=== PATIENT | female | born 1985 | race Hispanic/Latino ===

== ENCOUNTER 2021-08-17 12:32 | Emergency (ER) | payer OTHER ==
[~2021-08-17 12:32] MED LIST: Iopamidol 370 76% 100 ML VIAL ONE
[2021-08-17 13:00] LABS: #Lymphocytes 1.2 thou/uL (1.20-3.40); #Monocytes 0.3 thou/uL (0.11-0.59); #Neutrophils 8.7 thou/uL (1.40-6.50); %Basophils 0.2 % (0.0-1.0); %Lymphocytes 11.5 % (21.0-51.0); %Neutrophils 85.3 % (42.0-75.0); Hemoglobin 13.9 g/dL (12.0-16.0); Mean Corpuscular HGB CONC 34.4 g/dL (32.0-36.0); Mean Corpuscular Hemoglobin 30.3 pg (27.0-31.0); Mean Corpuscular Volume 88.1 fL (78.0-98.0); Mean Platelet Volume 6.3 fL (7.4-10.4); Platelet Count 410 thou/uL (130-400); RBC Distribution Width 11.5 % (11.5-14.5); Red Blood Cell (RBC) Count 4.59 mill/uL (4.20-5.40); White Blood Cell (WBC) Count 10.1 thou/uL (4.8-10.8)
[2021-08-17 13:16] LABS: BHCG - Serum Negative (NEGATIVE); Pregs Control Background? CLEAR/WHITE (CLR/WHITE); Pregs Control Bar Appear? YES (CONTROL BAR)
[2021-08-17 13:18] LABS: ALT (SGPT) 40 U/L (8-55); AST (SGOT) 46 U/L (5-34); Albumin 3.7 g/dL (3.5-5.0); Alkaline Phosphatase 47 U/L (40-110); Anion Gap 16 mmol/L (10-20); BUN (Urea Nitrogen) 14 mg/dL (7.0-18.7); Bilirubin, Total 0.7 mg/dL (0.2-1.2); Calc. Creatinine Clearance 0 mL/min (70-130); Calcium 8.8 mg/dL (7.8-10.44); Carbon Dioxide 26 mmol/L (22-29); Chloride 96 mmol/L (98-107); Globulin 3.6 g/dL (2.4-3.5); Glucose 118 mg/dL (70-105); Potassium 3.1 mmol/L (3.5-5.1); Protein, Total 7.3 g/dL (6.0-8.3); Sodium 135 mmol/L (136-145)
[2021-08-17] MEDS ORDERED: Albuterol 200 PUFF (6.7GM INHALER) INH SCH (13:30)
[2021-08-17] MEDS ORDERED: Sodium Chloride 0.9% 1,000 ML IV SCH (13:30)
[2021-08-17] MEDS ORDERED: Magnesium 2 GM/50 ML 2 GM in Premix Bag 1 BAG IVPB SCH (13:45)
[2021-08-17] MEDS ORDERED: Aspirin 325 MG TAB PO SCH (13:45)
[2021-08-17] MEDS ORDERED: Magnesium 2 GM/50 ML BAG (IN WATER) ONE (13:51)
[2021-08-17] MEDS ORDERED: Azithromycin 500 MG VIAL ONE (13:57)
[2021-08-17] MEDS ORDERED: cefTRIAXone\\ROCEPHIN 1 GM VIAL ONE ×2 (13:57→13:59)
[2021-08-17] MEDS ORDERED: Aspirin Chewable 81 MG TAB ONE (14:44)
[2021-08-17] MEDS ORDERED: Dexamethasone 10 MG/ML VIAL ONE (15:31)
[2021-08-17] MEDS ORDERED: Potassium Chloride 20 MEQ TAB ONE (15:31)
[2021-08-17] MEDS ORDERED: Acetaminophen 325 MG Suppository ONE (16:46)
[2021-08-17] MEDS ORDERED: Acetaminophen 325 MG TAB ONE ×2 (16:46)
== END 2021-08-17 18:17 | disposition short-term general hospital (02) ==
LOC: BURERS 12:32
DX: U07.1 COVID-19 (principal); J12.82 Pneumonia due to coronavirus disease 2019; N17.9 Acute kidney failure, unspecified; E87.6 Hypokalemia
CPT/HCPCS: 71045; 71275; 80053; 83605; 84484; 84703; 85025; 85379; 87040; 93005; 96365; 96366; 96367; 96368; 96375; J0456; J0696; J1100; J3475; Q9967

== ENCOUNTER 2023-10-02 12:29 | Emergency (ER) | payer OTHER, SELFPAY | END 2023-10-02 13:22 | disposition home or self-care (01) | LOC: BURERS 12:29 | DX: S63.501A Unspecified sprain of right wrist, initial encounter (principal); X50.0XXA Overexertion from strenuous movement or load, initial encounter ==